=== PATIENT | male | born 1985 | race Caucasian/White ===

== ENCOUNTER 2017-12-03 21:49 | Emergency (ER) | payer BC ==
[~2017-12-03] VITALS: Ht 172.7 cm; Wt 90.7 kg
[2017-12-03 22:04] VITALS: BP 158/93
== END 2017-12-03 23:50 | disposition home or self-care (01) ==
LOC: EME 21:49
DX: S61.011A Laceration without foreign body of right thumb without damage to nail, initial encounter (principal); W26.0XXA Contact with knife, initial encounter; Y99.0 Civilian activity done for income or pay; Z91.018 Allergy to other foods; Z23 Encounter for immunization
CPT/HCPCS: 99281; 99284